=== PATIENT | female | born 1960 | race African-American/Black ===

== ENCOUNTER 2025-10-18 08:33 | Emergency (ER) | payer SELFPAY ==
[~2025-10-18] VITALS: Ht 162.6 cm; Wt 132.0 kg
[2025-10-18 08:36] VITALS: O2SAT 97
[2025-10-18] MEDS ORDERED: LIDO-53 TP (10:22)
[2025-10-18] MEDS ORDERED: DICL100G46 TP (10:22)
[2025-10-18] MEDS: KETOROLAC 30MG/ML VIAL IM ONE (10:32)
[2025-10-18] MEDS: LIDOCAINE 5% PATCH TOP SCH (10:32)
[2025-10-18 10:41] VITALS: BP 170/89; PULSE 74; RESP 17; TEMP 36.9; O2SAT 98
== END 2025-10-18 10:42 | disposition home or self-care (01) ==
LOC: ER 08:33
DX: M25.562 Pain in left knee (principal); I10 Essential (primary) hypertension; E11.9 Type 2 diabetes mellitus without complications; M17.12 Unilateral primary osteoarthritis, left knee; Z88.8 Allergy status to other drugs, medicaments and biological substances; W19.XXXA Unspecified fall, initial encounter; Y93.89 Activity, other specified; Y92.89 Other specified places as the place of occurrence of the external cause; Y99.8 Other external cause status
CPT/HCPCS: 99283; 73562; 96372; J1885; A6449